=== PATIENT | female | born 1990 | race Asian ===

== ENCOUNTER 2017-11-09 14:22 | Emergency (ER) | payer OTHER ==
[~2017-11-09] VITALS: Ht 160 cm; Wt 56.2 kg
[2017-11-09 14:28] VITALS: BP 111/74
--- NOTE | 2017-11-09 14:31 | NUR ---
TO LOBBY A/W BED,AND X RAY, AMBULATORY, VSS, ERMD NOTED
--- NOTE | 2017-11-09 14:32 | NUR ---
Patient being evaluated by physician at bedside.
--- NOTE | 2017-11-09 15:31 | NUR ---
27Y/F BIB MOTHER C/O NOSE PAIN. PT STATES " SHE HAS NOSE PAIN FROM S/P BUNDLE OF PAPER FELL ON HER NOSE X 1 MONTH AGO AND NOW IN MODERATE PAIN /; AAOX4; STEADY AND EVEN GAIT; EVEN AND UNLABORED BREATHING; BED DOWN; BEDRAILS UP X 1; ER MD AWARE AN NOTIFIED AT THIS TIME. HX; DM, CHOLESTEROL RX; ABILIFY, ZOLOFT
[2017-11-09] MEDS ORDERED: IBUPROFEN 600 MG TAB PO ONE (16:10)
[2017-11-09 17:04] VITALS: BP 110/72
[2017-11-10] MEDS ORDERED: FLUTICASONE NASAL 50 MCG/ACTUATION 16 GM BTL NS SCH (09:00)
== END 2017-11-09 17:04 | disposition home or self-care (01) ==
LOC: MED 14:22
DX: S00.33XA Contusion of nose, initial encounter (principal); E11.9 Type 2 diabetes mellitus without complications; W22.8XXA Striking against or struck by other objects, initial encounter; Y93.89 Activity, other specified; Y92.89 Other specified places as the place of occurrence of the external cause; Y99.8 Other external cause status
CPT/HCPCS: 70160; 82948; 99284; 99285